=== PATIENT | male | born 1975 | race Caucasian/White ===

== ENCOUNTER 2017-05-03 00:02 | Inpatient (IN) | payer OTHER ==
[~2017-05-03] VITALS: Ht 182.9 cm; Wt 122.7 kg
[2017-05-03] VITALS (12 sets, daily range): BP systolic 133–160; BP diastolic 77–92; PULSE 76–94; RESP 18–19; Ht 182.9 cm; Wt 122.7 kg
[2017-05-03] MEDS ORDERED: ALBU8.5H3 INH (03:29)
[2017-05-03] MEDS ORDERED: METF750T2 PO (03:29)
[2017-05-03] MEDS ORDERED: AMLO5TAB4 PO (03:29)
[2017-05-03] MEDS ORDERED: ACETAMINOPHEN 325 MG TAB PO PRN (04:00)
[2017-05-03] MEDS ORDERED: CEFEPIME 1GM/50 ML (PMX) 50 ML IVPB SCH (04:00)
[2017-05-03] MEDS ORDERED: HYDROCODONE/APAP (5/325) TAB PO PRN (04:00)
[2017-05-03] MEDS ORDERED: morphine 4 MG/ML VIAL IV PRN (04:00)
[2017-05-03] MEDS ORDERED: ONDANSETRON 4 MG INJ IV PRN (04:00)
[2017-05-03] MEDS ORDERED: NACL 0.9% 3 ML SYG IV SCH (04:00)
[2017-05-03] MEDS ORDERED: ALBUTEROL 0.083% (NEB) 2.5 MG/3 ML AMP NEB PRN (04:00)
[2017-05-03] MEDS ORDERED: AZTREONAM 2 GM in SOD CHLORIDE 0.9% 100 ML IVPB SCH (05:00)
[2017-05-03] MEDS ORDERED: VANCOMYCIN IV PER PHARMACY XX SCH (05:00)
[2017-05-03] MEDS ORDERED: VANCOMYCIN 2 GM in SOD CHLORIDE 0.9% 500 ML IVPB SCH ×2 (05:00→06:00)
[2017-05-03] MEDS: INSULIN ASPART [NOVOLOG] 3 ML PEN SC SCH ×4 (08:00→21:00)
[2017-05-03] MEDS: INSULIN GLARGINE [LANtus] 3 ML PEN SC SCH ×2 (08:00→10:32)
[2017-05-03] MEDS ORDERED: DEXTROSE 50% 50 ML SYRINGE IV PRN ×2 (08:30)
[2017-05-03] MEDS ORDERED: GLUCOSE GEL 15 GRAM TUBE BUCCAL PRN (08:30)
[2017-05-03] MEDS ORDERED: GLUCOSE GEL 15 GRAM TUBE PO PRN ×2 (08:30)
[2017-05-03] MEDS ORDERED: GLUCAGON 1 MG INJ IM PRN (08:30)
[2017-05-03 08:38] LABS: EOSINOPHILS % 0.1 % (0.0-7.0); HEMATOCRIT 41.9 % (42.0-52.0); HEMOGLOBIN 14.6 g/dl (14.0-18.0); LYMPHOCYTES # 1.4 10^3/ul (0.8-2.9); LYMPHOCYTES % 16.3 % (15.0-51.0); MEAN CORPUSCULAR HEMOGLOBIN 28.7 pg (29.0-33.0); MEAN CORPUSCULAR HGB CONC 34.8 g/dl (32.0-37.0); MEAN CORPUSCULAR VOLUME 82.3 fl (82.0-101.0); MEAN PLATELET VOLUME 9.6 fl (7.4-10.4); MONOCYTE # 0.6 10^3/ul (0.3-0.9); MONOCYTES % 6.7 % (0.0-11.0); NEUTROPHIL # 6.5 10^3/ul (1.6-7.5); NEUTROPHILS % 76.5 % (39.0-77.0); PLATELET COUNT 426 10^3/UL (140-415); RED BLOOD COUNT 5.09 10^6/ul (4.70-6.10); RED CELL DISTRIBUTION WIDTH 12.2 % (11.5-14.5); WHITE BLOOD COUNT 8.5 10^3/ul (4.8-10.8)
[2017-05-03 09:08] LABS: ALBUMIN 3.7 g/dl (3.3-4.9); ALBUMIN/GLOBULIN RATIO 1.02; BILIRUBIN,INDIRECT 0.3 mg/dl (0-1.1); BILIRUBIN,TOTAL 0.3 mg/dl (0.2-1.3); CALCIUM 9.4 mg/dl (8.4-10.2); CREATININE 0.77 mg/dl (0.61-1.24); POTASSIUM 3.9 mmol/L (3.5-5.1); TOTAL PROTEIN 7.3 g/dl (6.1-8.1)
--- NOTE | 2017-05-03 09:12 | RADRPT ---
PROCEDURE: XR Chest. CLINICAL INDICATION: Shortness of breath. TECHNIQUE: Single frontal view. COMPARISON: None. FINDINGS: There is a right mid and lower lung zone atelectasis or pneumonia. The left lung is clear. The heart size is normal. There is a large right pleural effusion. There is no pneumothorax. IMPRESSION: 1. Right mid and lower lung zone atelectasis or pneumonia. 2. Large right pleural effusion. RPTAT: QQ .Philip Gutiérrez MD, MD Date Time Electronically viewed and signed by .Philip Gutiérrez MD, MD on 05/03/2017 09:12 .R/
[2017-05-03 09:45] LABS: INR 1.05; PROTIME 13.7 Sec (12.2-14.2); PT RATIO 1.1
[2017-05-03 09:46] LABS: PARTIAL THROMBOPLASTIN TIME 32.3 Sec (25.0-35.0)
--- NOTE | 2017-05-03 10:04 | HP ---
Date/Time of Note Date/Time of Note DATE: 05/03/17 TIME: 09:59 Assessment/Plan VTE Prophylaxis VTE Prophylaxis Intervention: SCD's Lines/Catheters IV Catheter Type (from [facility]): [facility]ine [facility] Urinary Cath still in place: No Assessment/Plan Assessment/Plan 1. Right-sided pneumonia, with pleural effusion, likely aspiration pneumonia -Patient had tooth infection/abscess proceeding is a symptom of S OB and cough, so it seems like patient may have aspirated his oral contents -IV antibiotic -Follow-up culture results -Consider thoracentesis 2. History of hypertension -Continue home meds with adjustment as needed 3. Type 2 diabetes -Check A1c. Insulin while in-house 4. History of asthma: -Supplemental oxygen, bronchodilators and steroids as needed HPI/ROS Admit Date/Time Admit Date/Time May 03, 2017 at 01:47 Hx of Present Illness This is a 41-year-old male with a history of hypertension, type 2 diabetes, asthma who initially presented to [facility] complaining of shortness of breath, dry cough cough and fever. He was transferred to [facility] for insurance reasons. At outside hospital, chest x-ray and chest CT showed large pleural effusion as well as right-sided pneumonia. Currently patient is feeling well and looks comfortable. He said he had a tooth infection about a week ago for which he was started on clindamycin. Few days ago he started experiencing above-stated symptoms. PMH/Family/Social Social History Smoking Status: Never smoker Exam/Review of Systems Vital Signs Vitals Vital Signs Date Time Temp Pulse Resp B/P Pulse Ox O2 Delivery O2 Flow Rate FiO2 05/03/17 08:36 87 05/03/17 07:49 97.3 19 135/85 91 Intake and Output 05/02/17 05/02/17 05/03/17 15:00 23:00 07:00 Intake Total 500 ml Balance 500 ml Exam Constitutional: alert, oriented Head: atraumatic, normocephalic Eyes: EOMI, PERRL Respiratory: diminished breath sounds Cardiovascular: nl pulses, regular rate and rhythm Gastrointestinal: non-tender, soft Extremities: normal pulses Labs Result Diagram: 05/03/1772905/03/17729 Medications Medications Current Medications Ondansetron HCl (Zofran Inj) 4 mg Q6H PRN IV NAUSEA AND/OR VOMITING; Start at 04:00 Acetaminophen (Tylenol Tab) 650 mg Q6H PRN PO PAIN LEVEL 1-3 OR FEVER; Start at 04:00 Acetaminophen/ Hydrocodone Bitart ([place] (5/325)) 1 tab Q6H PRN PO PAIN LEVEL 4 -6; Start 05/03/17 at 04:00 Morphine Sulfate (morphine) 3 mg Q4H PRN IV PAIN LEVEL 7-10; Start 05/03/17 at 04:00 Diagnostic Test (Pha) (Accu-Chek) 1 ea 02 XX ; Start 05/04/17 at 02:00 Insulin Glargine (Lantus) 10 unit DAILY@08 SC ; Start 05/03/17 at 08:00 Diagnostic Test (Pha) 1 ea 1 ea 02 XX ; Start 05/04/17 at 02:00 Aztreonam 2 gm/ Sodium Chloride 100 ml @ 100 mls/hr Q8 IVPB Last administered on 05/03/17 05:59; Admin Dose 100 MLS/HR; Start 05/03/17 at 05:00 Vancomycin HCl/ Sodium Chloride (Vancocin/NS) 500 ml @ 125 mls/hr ONCE IVPB Last administered on 05/03/17 06:56; Admin Dose 125 MLS/HR; Start 05/03/17 at 06:00; Stop 05/03/17 at 09:59 Miscellaneous Information 1 ea NOTE XX ; Start 05/03/17 at 08:30 Glucose (Glutose) 15 gm Q15M PRN PO DECREASED GLUCOSE; Start 05/03/17 at 08:30 Glucose (Glutose) 22.5 gm Q15M PRN PO DECREASED GLUCOSE; Start 05/03/17 at 08: 30 Dextrose (D50w Syringe) 25 ml Q15M PRN IV DECREASED GLUCOSE; Start 05/03/17 at 08:30 Dextrose (D50w Syringe) 50 ml Q15M PRN IV DECREASED GLUCOSE; Start 05/03/17 at 08:30 Glucagon (Glucagen) 1 mg Q15M PRN IM DECREASED GLUCOSE; Start 05/03/17 at 08:30 Glucose 15 gm 15 gm Q15M PRN BUCCAL DECREASED GLUCOSE; Start 05/03/17 at 08:30 Vancomycin HCl/ Sodium Chloride (Vancocin/NS) 250 ml @ 83.333 mls/ hr Q8H IVPB ; Start 05/03/17 at 15:00 Miscellaneous Information (*Rx Drug Level Order Reminder*) VANCO TROUGH @ 0, 600 ON... ONCE ONCE XX ; Start 05/04/17 at 06:00; Stop 05/04/17 at 06:01 JAMIE THOMAS MD May 03, 2017 10:04
--- NOTE | 2017-05-03 14:29 | PN ---
Date/Time of Note Date/Time of Note DATE: 05/03/17 TIME: 14:20 Assessment/Plan VTE Prophylaxis VTE Prophylaxis Intervention: SCD's Lines/Catheters IV Catheter Type (from Nrs): Saline Lock Urinary Cath still in place: No Assessment/Plan Assessment/Plan 1. Right-sided pneumonia, with pleural effusion, levaquin, US-guided thoracentesis 2. Hypertension, resume norvasc 3. Type 2 diabetes, metformin, ISS 4. History of asthma, neb prn Exam/Review of Systems Vital Signs Vitals Vital Signs Date Time Temp Pulse Resp B/P Pulse Ox O2 Delivery O2 Flow Rate FiO2 05/03/17 12:17 89 05/03/17 11:50 97.9 19 160/92 93 Intake and Output 05/02/17 05/02/17 05/03/17 15:00 23:00 07:00 Intake Total 500 ml Balance 500 ml Exam Constitutional: alert, oriented, well developed Psych: nl mood/affect, no complaints Head: atraumatic, normocephalic Eyes: EOMI, PERRL, nl conjunctiva, nl lids, nl sclera ENMT: nl external ears & nose, nl lips & teeth, nl nasal mucosa & septum Neck: non-tender, supple Respiratory: clear to auscultation, diminished breath sounds (right) Cardiovascular: nl pulses, regular rate and rhythm, No S3, No S4, No bruits, No diastolic murmur, No edema, No gallop, No irregular rhythm, No jugular venous distention (JVD), No murmurs/extra sounds, No other, No rub, No systolic murmur Gastrointestinal: nl liver, spleen, non-tender, soft, No ascites, No bowel sounds, No distended, No firm, No hepatomegaly, No mass , No other, No rebound or guarding, No splenomegaly, No surgical scars, No tender Musculoskeletal: nl extremities to inspection Extremities: normal pulses, No calf tenderness, No clubbing, No cyanosis, No edema, No other, No palpable cord, No pitting pedal edema, No tenderness Neurological: WATCH TECHNICIAN II-XII intact, nl mental status, nl speech, nl strength Results Result Diagram: 05/03/17 0730 05/03/17 0730 Results 24 hrs Laboratory Tests Test 05/03/17 02:44 05/03/17 07:30 05/03/17 08:20 05/03/17 10:34 Bedside Glucose 185 127 150 White Blood Count 8.5 Red Blood Count 5.09 Hemoglobin 14.6 Hematocrit 41.9 L Mean Corpuscular Volume 82.3 Mean Corpuscular Hemoglobin 28.7 L Mean Corpuscular Hemoglobin Concent 34.8 Red Cell Distribution Width 12.2 Platelet Count 426 H Mean Platelet Volume 9.6 Neutrophils % 76.5 Lymphocytes % 16.3 Monocytes % 6.7 Eosinophils % 0.1 Basophils % 0.0 Nucleated Red Blood Cells % 0.0 Neutrophils # 6.5 Lymphocytes # 1.4 Monocytes # 0.6 Eosinophils # 0.0 Basophils # 0.0 Nucleated Red Blood Cells # 0.0 Prothrombin Time 13.7 Prothrombin Time Ratio 1.1 INR International Normalized Ratio 1.05 Activated Partial Thromboplast Time 32.3 Sodium Level 139 Potassium Level 3.9 Chloride Level 106 Carbon Dioxide Level 23 Anion Gap 14 Blood Urea Nitrogen 10 Creatinine 0.77 Glucose Level 169 Hemoglobin A1c 6.9 H Calcium Level 9.4 Total Bilirubin 0.3 Direct Bilirubin 0.00 Indirect Bilirubin 0.3 Aspartate Amino Transf (AST/SGOT) 27 Alanine Aminotransferase (ALT/SGPT) 62 Alkaline Phosphatase 69 Total Protein 7.3 Albumin 3.7 Globulin 3.60 H Albumin/Globulin Ratio 1.02 Test 05/03/17 12:15 Bedside Glucose 119 Medications Medications Current Medications Ondansetron HCl (Zofran Inj) 4 mg Q6H PRN IV NAUSEA AND/OR VOMITING; Start at 04:00 Acetaminophen (Tylenol Tab) 650 mg Q6H PRN PO PAIN LEVEL 1-3 OR FEVER Last administered on 05/03/17 12:23; Admin Dose 650 MG; Start 05/03/17 at 04:00 Acetaminophen/ Hydrocodone Bitart ([place] (5/325)) 1 tab Q6H PRN PO PAIN LEVEL 4 -6; Start 05/03/17 at 04:00 Morphine Sulfate (morphine) 3 mg Q4H PRN IV PAIN LEVEL 7-10; Start 05/03/17 at 04:00 Diagnostic Test (Pha) (Accu-Chek) 1 ea 02 XX ; Start 05/04/17 at 02:00 Insulin Glargine (Lantus) 10 unit DAILY@08 SC Last administered on 9/26/17at 10 :32; Admin Dose 10 UNIT; Start 05/03/17 at 08:00 Diagnostic Test (Pha) 1 ea 1 ea 02 XX ; Start 05/04/17 at 02:00 Aztreonam/Sodium Chloride (Azactam/NS) 100 ml @ 100 mls/hr Q8 IVPB Last administered on 05/03/17 05:59; Admin Dose 100 MLS/HR; Start 05/03/17 at 05:00 Miscellaneous Information 1 ea NOTE XX ; Start 05/03/17 at 08:30 Glucose (Glutose) 15 gm Q15M PRN PO DECREASED GLUCOSE; Start 05/03/17 at 08:30 Glucose (Glutose) 22.5 gm Q15M PRN PO DECREASED GLUCOSE; Start 05/03/17 at 08: 30 Dextrose (D50w Syringe) 25 ml Q15M PRN IV DECREASED GLUCOSE; Start 05/03/17 at 08:30 Dextrose (D50w Syringe) 50 ml Q15M PRN IV DECREASED GLUCOSE; Start 05/03/17 at 08:30 Glucagon (Glucagen) 1 mg Q15M PRN IM DECREASED GLUCOSE; Start 05/03/17 at 08:30 Glucose 15 gm 15 gm Q15M PRN BUCCAL DECREASED GLUCOSE; Start 05/03/17 at 08:30 Vancomycin HCl/ Sodium Chloride (Vancocin/NS) 250 ml @ 83.333 mls/ hr Q8H IVPB ; Start 05/03/17 at 15:00 Miscellaneous Information (*Rx Drug Level Order Reminder*) VANCO TROUGH @ 0, 600 ON... ONCE ONCE XX ; Start 05/04/17 at 06:00; Stop 05/04/17 at 06:01 RAGHU HERNANDEZ MD May 03, 2017 14:29
[2017-05-03] MEDS ORDERED: VANCOMYCIN 1.25 GM in SOD CHLORIDE 0.9% 250 ML IVPB SCH (15:00)
[2017-05-03] MEDS: LEVOFLOXACIN 500MG/D5W (PMX) 100 ML IVPB SCH (16:09)
[2017-05-03] MEDS: AMLODIPINE 5 MG TAB PO SCH (16:10)
[2017-05-03] MEDS ORDERED: LIDOCAINE 1% (MPF) 5 ML VIAL ONE (18:16)
[2017-05-03] MEDS: metFORMIN 500 MG TAB PO SCH (18:41)
--- NOTE | 2017-05-03 19:27 | RADRPT ---
PROCEDURE: XR Chest. CLINICAL INDICATION: Status post thoracentesis TECHNIQUE: AP Portable chest. COMPARISON: 05/03/2017 07:43 a.m. FINDINGS: Mild interval decrease right pleural effusion. No pneumothorax is seen. The left costophrenic angle is excluded. Mild interstitial edema. The right heart border and hemidiaphragm are obscured. The aor ta is normal. The osseous structures are intact. IMPRESSION: Mild interval decrease right pleural effusion. No pneumothorax. Physician Stefani Date Time Electronically viewed and signed by Arina Stein Physician on 05/03/2017 19:26 CS/
[2017-05-03 19:53] LABS: FLD MN% 99.1 %; FLD PMN% 0.9 %; FLD RBC 2 /uL; FLD WBC 2893 /cmm
[2017-05-03 20:15] LABS: FLUID LD 931 U/L; FLUID TYPE FLUID
[2017-05-03 20:16] LABS: FLUID TOTAL PROTEIN 5.2 g/dl
--- NOTE | 2017-05-03 20:45 | RADRPT ---
PROCEDURE: US guided right thoracentesis. CLINICAL INDICATION: Shortness of breath. Right pleural effusion. TECHNIQUE: Prior to the procedure, informed consent was obtained. The risks, benefits, and alternatives were e xplained to the patient, including but not limited to bleeding, infection, pain, visceral or vascula r damage, shock, pneumothorax, chest tube placement, air embolism, and . The patient understoo d the risks and the alternatives and wished to proceed with the study. Informed written consent was obtained. A procedural pause was performed. The patient's name, date of , and procedure to be performed were verified. Ultrasound of the right hemithorax was performed in the axial and sagittal planes. A right pleural e ffusion is noted. Utilizing ultrasound guidance, optimal location for entry to the pleural cavity wa s ascertained. The overlying skin was prepped and draped in the usual sterile fashion. Approximate ly 10 ml of 1% Xylocaine was injected locally for pain control. Using ultrasound guidance, a 5-Fren ch Yueh catheter was introduced into the right pleural space without difficulty. Fluid was aspirated and sent to the laboratory. COMPARISON: None. FINDINGS: Initial ultrasound demonstrates fluid in the right pleural space. Approximately 1600 ml of serous fluid was aspirated. IMPRESSION: Successful ultrasound-guided right thoracentesis. RPTAT: QQ .Checo Aguero MD, Date Time Electronically viewed and signed by .Checo Aguero MD, on 05/03/2017 20:45 .N/
[2017-05-03 20:57] LABS: FLD CLARITY HAZY; FLD COLOR YELLOW; FLD TYPE PLEURAL
[2017-05-04] VITALS (11 sets, daily range): BP systolic 129–149; BP diastolic 72–95; PULSE 66–94; RESP 17–19
[2017-05-04] MEDS ORDERED: ACCU-CHEK XX SCH (02:00)
[2017-05-04] MEDS: ACCU-CHEK XX SCH (02:05)
[2017-05-04 08:17] LABS: BASOPHILS % 0.4 % (0.0-2.0); EOSINOPHILS # 0.2 10^3/ul (0.0-0.5); EOSINOPHILS % 1.7 % (0.0-7.0); HEMATOCRIT 46.1 % (42.0-52.0); HEMOGLOBIN 15.6 g/dl (14.0-18.0); LYMPHOCYTES # 3.5 10^3/ul (0.8-2.9); LYMPHOCYTES % 37.3 % (15.0-51.0); MEAN CORPUSCULAR HEMOGLOBIN 28.3 pg (29.0-33.0); MEAN CORPUSCULAR HGB CONC 33.8 g/dl (32.0-37.0); MEAN CORPUSCULAR VOLUME 83.7 fl (82.0-101.0); MEAN PLATELET VOLUME 9.7 fl (7.4-10.4); MONOCYTE # 0.8 10^3/ul (0.3-0.9); MONOCYTES % 8.8 % (0.0-11.0); NEUTROPHIL # 4.9 10^3/ul (1.6-7.5); NEUTROPHILS % 51.5 % (39.0-77.0); PLATELET COUNT 423 10^3/UL (140-415); RED BLOOD COUNT 5.51 10^6/ul (4.70-6.10); RED CELL DISTRIBUTION WIDTH 12.9 % (11.5-14.5); WHITE BLOOD COUNT 9.4 10^3/ul (4.8-10.8)
[2017-05-04 08:50] LABS: CALCIUM 9.1 mg/dl (8.4-10.2); PHOSPHORUS 4.2 mg/dl (2.5-4.9); POTASSIUM 4.5 mmol/L (3.5-5.1)
[2017-05-04] MEDS: metFORMIN 500 MG TAB PO SCH ×2 (08:55→17:12)
[2017-05-04] MEDS: AMLODIPINE 5 MG TAB PO SCH (08:56)
[2017-05-04] MEDS: INSULIN ASPART [NOVOLOG] 3 ML PEN SC SCH ×4 (09:01→21:00)
[2017-05-04] MEDS ORDERED: IBUPROFEN 800 MG TAB PO PRN (13:30)
[2017-05-04] MEDS ORDERED: HYDROCODONE/APAP (5/325) TAB PO PRN (14:00)
--- NOTE | 2017-05-04 14:02 | PN ---
Date/Time of Note Date/Time of Note DATE: 05/04/17 TIME: 13:58 Assessment/Plan VTE Prophylaxis VTE Prophylaxis Intervention: SCD's Lines/Catheters IV Catheter Type (from Nrs): Saline Lock Urinary Cath still in place: No Assessment/Plan Assessment/Plan 1. Right-sided pneumonia, on levaquin 2. Right pleural effusion, US-guided thoracentesis with 1600 cc fluid, follow up with culture 3. Hypertension, resume norvasc 4. Type 2 diabetes, metformin, ISS 5. History of asthma, neb prn 6. Headache, tylenol/ibuprofen and norco prn Subjective 24 Hr Interval Summary Free Text/Dictation less shortness of breath, headache Exam/Review of Systems Vital Signs Vitals Vital Signs Date Time Temp Pulse Resp B/P Pulse Ox O2 Delivery O2 Flow Rate FiO2 05/04/17 12:14 94 05/04/17 11:46 98.1 17 135/76 94 05/03/17 22:38 21 Intake and Output 05/03/17 05/03/17 05/04/17 15:00 23:00 07:00 Intake Total 800 ml 600 ml Balance 800 ml 600 ml Exam Constitutional: alert, oriented, well developed Psych: nl mood/affect, no complaints Head: atraumatic, normocephalic Eyes: EOMI, PERRL, nl conjunctiva, nl lids ENMT: mucosa pink and moist, nl external ears & nose, nl lips & teeth, nl nasal mucosa & septum Neck: non-tender, supple Respiratory: clear to auscultation, normal air movement, No congested cough, No crackles/rales, No diminished breath sounds, No intercostal retraction, No labored breathing, No other, No respirations, No tactile fremitus, No wheezing Cardiovascular: nl pulses, regular rate and rhythm, No S3, No S4, No bruits, No diastolic murmur, No edema, No gallop, No irregular rhythm, No jugular venous distention (JVD), No murmurs/extra sounds, No other, No rub, No systolic murmur Gastrointestinal: nl liver, spleen, non-tender, soft, No ascites, No bowel sounds, No distended, No firm, No hepatomegaly, No mass , No other, No rebound or guarding, No splenomegaly, No surgical scars, No tender Musculoskeletal: nl extremities to inspection Extremities: normal pulses, No calf tenderness, No clubbing, No cyanosis, No edema, No other, No palpable cord, No pitting pedal edema, No tenderness Neurological: HOSPICE NURSE PRACTITIONER II-XII intact, nl mental status, nl speech, nl strength Skin: nl turgor Results Result Diagram: 05/04/17 0711 05/04/17 0711 Results 24 hrs Laboratory Tests Test 05/03/17 17:45 05/03/17 18:39 05/03/17 21:00 05/04/17 07:11 Body Fluid Type FLUID Body Fluid Volume 980.0 Body Fluid Color YELLOW Body Fluid Appearance HAZY Body Fluid WBC 2893 Body Fluid RBC (Auto) 2 Body Fluid Polynuclear WBCs (%) 0.9 Body Fluid Mononuclear Cells % Auto 99.1 Body Fluid Total Protein 5.2 Body Fluid Lactate Dehydrogenase 931 Bedside Glucose 119 162 White Blood Count 9.4 Red Blood Count 5.51 Hemoglobin 15.6 Hematocrit 46.1 Mean Corpuscular Volume 83.7 Mean Corpuscular Hemoglobin 28.3 L Mean Corpuscular Hemoglobin Concent 33.8 Red Cell Distribution Width 12.9 Platelet Count 423 H Mean Platelet Volume 9.7 Neutrophils % 51.5 Lymphocytes % 37.3 Monocytes % 8.8 Eosinophils % 1.7 Basophils % 0.4 Nucleated Red Blood Cells % 0.0 Neutrophils # 4.9 Lymphocytes # 3.5 H Monocytes # 0.8 Eosinophils # 0.2 Basophils # 0.0 Nucleated Red Blood Cells # 0.0 Sodium Level 143 Potassium Level 4.5 Chloride Level 106 Carbon Dioxide Level 28 Anion Gap 14 Blood Urea Nitrogen 11 Creatinine 1.00 Glucose Level 125 # Calcium Level 9.1 Phosphorus Level 4.2 Magnesium Level 2.0 Test 05/04/17 08:59 05/04/17 13:03 Bedside Glucose 161 154 Medications Medications Current Medications Ondansetron HCl (Zofran Inj) 4 mg Q6H PRN IV NAUSEA AND/OR VOMITING; Start at 04:00 Acetaminophen (Tylenol Tab) 650 mg Q6H PRN PO PAIN LEVEL 1-3 OR FEVER Last administered on 05/03/17t 12:23; Admin Dose 650 MG; Start 05/03/17 at 04:00 Acetaminophen/ Hydrocodone Bitart ([place] (5/325)) 1 tab Q6H PRN PO PAIN LEVEL 4 -6 Last administered on 05/03/17 22:35; Admin Dose 1 TAB; Start 05/03/17 at 04: 00 Morphine Sulfate (morphine) 3 mg Q4H PRN IV PAIN LEVEL 7-10 Last administered on 05/04/17 08:44; Admin Dose 3 MG; Start 05/03/17 at 04:00 Diagnostic Test (Pha) (Accu-Chek) 1 ea 02 XX ; Start 05/04/17 at 02:00 Miscellaneous Information 1 ea NOTE XX ; Start 05/03/17 at 08:30 Glucose (Glutose) 15 gm Q15M PRN PO DECREASED GLUCOSE; Start 05/03/17 at 08:30 Glucose (Glutose) 22.5 gm Q15M PRN PO DECREASED GLUCOSE; Start 05/03/17 at 08: 30 Dextrose (D50w Syringe) 25 ml Q15M PRN IV DECREASED GLUCOSE; Start 05/03/17 at 08:30 Dextrose (D50w Syringe) 50 ml Q15M PRN IV DECREASED GLUCOSE; Start 05/03/17 at 08:30 Glucagon (Glucagen) 1 mg Q15M PRN IM DECREASED GLUCOSE; Start 05/03/17 at 08:30 Glucose (Glutose) 15 gm Q15M PRN BUCCAL DECREASED GLUCOSE; Start 05/03/17 at 08 :30 Amlodipine Besylate 5 mg 5 mg DAILY PO Last administered on 05/04/17 08:56; Admin Dose 5 MG; Start 05/03/17 at 14:30 Levofloxacin/ Dextrose (Levaquin 500mg/ D5W 100 ml (Pmx)) 100 ml @ 100 mls/hr Q24H IVPB Last administered on 05/03/17 16:09; Admin Dose 100 MLS/HR; Start at 14:30 Ibuprofen (Motrin) 800 mg Q6H PRN PO Pain; Start 05/04/17 at 13:30 RAGHU HERNANDEZ MD May 04, 2017 14:02
[2017-05-04] MEDS: LEVOFLOXACIN 500MG/D5W (PMX) 100 ML IVPB SCH (14:46)
[2017-05-05] VITALS (12 sets, daily range): BP systolic 119–143; BP diastolic 68–86; PULSE 73–108; RESP 16–20
[2017-05-05] MEDS: ACCU-CHEK XX SCH (02:00)
[2017-05-05] MEDS: INSULIN ASPART [NOVOLOG] 3 ML PEN SC SCH ×4 (08:00→21:00)
[2017-05-05] MEDS: metFORMIN 500 MG TAB PO SCH ×2 (08:43→17:09)
[2017-05-05] MEDS: AMLODIPINE 5 MG TAB PO SCH (08:44)
[2017-05-05] MEDS: LEVOFLOXACIN 500MG/D5W (PMX) 100 ML IVPB SCH (14:13)
--- NOTE | 2017-05-05 15:10 | PN ---
Date/Time of Note Date/Time of Note DATE: 05/05/17 TIME: 15:05 Assessment/Plan VTE Prophylaxis VTE Prophylaxis Intervention: LMWH Lines/Catheters IV [facility] Saline Lock Urinary Cath still in place: No Assessment/Plan Assessment/Plan 1. Right-sided pneumonia, on levaquin 2. Right pleural effusion, US-guided thoracentesis with 1600 cc fluid, follow up with culture(neg for 2 days) 3. Hypertension, resume norvasc 4. Type 2 diabetes, metformin, ISS 5. History of asthma, neb prn 6. Headache, tylenol/ibuprofen and norco prn Subjective 24 Hr Interval Summary Free Text/Dictation afebrile, no SOB Exam/Review of Systems Vital Signs Vitals Vital Signs Date Time Temp Pulse Resp B/P Pulse Ox O2 Delivery O2 Flow Rate FiO2 05/05/17 12:14 100 05/05/17 11:38 99.3 20 143/86 94 05/03/17 22:38 21 Intake and Output 05/04/17 05/04/17 05/05/17 15:00 23:00 07:00 Intake Total 1050 ml 600 ml Balance 1050 ml 600 ml Exam Constitutional: alert, oriented, well developed Psych: nl mood/affect, no complaints Head: atraumatic, normocephalic Eyes: EOMI, nl conjunctiva, nl lids ENMT: nl external ears & nose, nl lips & teeth, nl nasal mucosa & septum Neck: non-tender, supple Respiratory: clear to auscultation, normal air movement, No congested cough, No crackles/rales, No diminished breath sounds, No intercostal retraction, No labored breathing, No other, No respirations, No tactile fremitus, No wheezing Cardiovascular: nl pulses, regular rate and rhythm, No S3, No S4, No bruits, No diastolic murmur, No edema, No gallop, No irregular rhythm, No jugular venous distention (JVD), No murmurs/extra sounds, No other, No rub, No systolic murmur Gastrointestinal: soft Musculoskeletal: nl extremities to inspection Extremities: normal pulses, No calf tenderness, No clubbing, No cyanosis, No edema, No other, No palpable cord, No pitting pedal edema, No tenderness Neurological: PSYCH ASSISTANT II-XII intact, nl mental status, nl speech, nl strength Skin: nl turgor Results Result Diagram: 05/04/17 0711 05/04/17 0711 Results 24 hrs Laboratory Tests Test 05/04/17 17:07 05/04/17 21:29 05/05/17 02:43 05/05/17 08:26 Bedside Glucose 125 131 114 131 Test 05/05/17 11:48 Bedside Glucose 142 Medications Medications Current Medications Ondansetron HCl (Zofran Inj) 4 mg Q6H PRN IV NAUSEA AND/OR VOMITING; Start at 04:00 Acetaminophen (Tylenol Tab) 650 mg Q6H PRN PO PAIN LEVEL 1-3 OR FEVER Last administered on 05/03/17 12:23; Admin Dose 650 MG; Start 05/03/17 at 04:00 Morphine Sulfate (morphine) 3 mg Q4H PRN IV PAIN LEVEL 7-10 Last administered on 05/04/17 08:44; Admin Dose 3 MG; Start 05/03/17 at 04:00 Diagnostic Test (Pha) (Accu-Chek) 1 ea 02 XX Last administered on 05/05/17 02: 00; Admin Dose 1 EA; Start 05/04/17 at 02:00 Miscellaneous Information 1 ea NOTE XX ; Start 05/03/17 at 08:30 Glucose (Glutose) 15 gm Q15M PRN PO DECREASED GLUCOSE; Start 05/03/17 at 08:30 Glucose (Glutose) 22.5 gm Q15M PRN PO DECREASED GLUCOSE; Start 05/03/17 at 08: 30 Dextrose (D50w Syringe) 25 ml Q15M PRN IV DECREASED GLUCOSE; Start 05/03/17 at 08:30 Dextrose (D50w Syringe) 50 ml Q15M PRN IV DECREASED GLUCOSE; Start 05/03/17 at 08:30 Glucagon (Glucagen) 1 mg Q15M PRN IM DECREASED GLUCOSE; Start 05/03/17 at 08:30 Glucose (Glutose) 15 gm Q15M PRN BUCCAL DECREASED GLUCOSE; Start 05/03/17 at 08 :30 Amlodipine Besylate 5 mg 5 mg DAILY PO Last administered on 05/05/17 08:44; Admin Dose 5 MG; Start 05/03/17 at 14:30 Levofloxacin/ Dextrose (Levaquin 500mg/ D5W 100 ml (Pmx)) 100 ml @ 100 mls/hr Q24H IVPB Last administered on 05/05/17 14:13; Admin Dose 100 MLS/HR; Start at 14:30 Ibuprofen (Motrin) 800 mg Q6H PRN PO Pain Last administered on 05/04/17 17:12 ; Admin Dose 800 MG; Start 05/04/17 at 13:30 Acetaminophen/ Hydrocodone Bitart ([place] (5/325)) 1 tab Q4H PRN PO pain; Start 05/04/17 at 14:00 RAGHU HERNANDEZ MD May 05, 2017 15:10
[2017-05-05] MEDS: ENOXAPARIN 40 MG/0.4 ML SYG SC SCH (16:33)
--- NOTE | 2017-05-05 17:20 | RADRPT ---
PROCEDURE: XR Chest. CLINICAL INDICATION: Pleural effusion. TECHNIQUE: Single frontal view. COMPARISON: 05/03/2017. FINDINGS: There is right basilar atelectasis, improved. The lungs are otherwise clear. The heart size is normal. There is a small right pleural effusion, smaller than seen previously. There is no left pleural effu lucretia. There is no pneumothorax. IMPRESSION: 1. Improved appearance of the right lung base and smaller right pleural effusion. 2. Otherwise unremarkable chest x-ray. RPTAT: QQ .Philip Gutiérrez MD, MD Date Time Electronically viewed and signed by .P[place] Gutiérrez MD, MD on 05/05/2017 17:20 .R/
[2017-05-06] VITALS (10 sets, daily range): BP systolic 110–146; BP diastolic 62–92; PULSE 83–125; RESP 16–18
[2017-05-06] MEDS: ACCU-CHEK XX SCH (02:00)
[2017-05-06] MEDS: INSULIN ASPART [NOVOLOG] 3 ML PEN SC SCH ×2 (08:00→12:00)
[2017-05-06] MEDS: metFORMIN 500 MG TAB PO SCH (08:40)
[2017-05-06 08:41] LABS: BASOPHILS % 0.3 % (0.0-2.0); EOSINOPHILS # 0.2 10^3/ul (0.0-0.5); EOSINOPHILS % 2.2 % (0.0-7.0); HEMOGLOBIN 16.5 g/dl (14.0-18.0); LYMPHOCYTES # 3.2 10^3/ul (0.8-2.9); MEAN CORPUSCULAR HEMOGLOBIN 28.7 pg (29.0-33.0); MEAN CORPUSCULAR HGB CONC 35.1 g/dl (32.0-37.0); MEAN CORPUSCULAR VOLUME 81.9 fl (82.0-101.0); MEAN PLATELET VOLUME 9.6 fl (7.4-10.4); MONOCYTE # 0.8 10^3/ul (0.3-0.9); MONOCYTES % 7.4 % (0.0-11.0); NEUTROPHILS % 58.7 % (39.0-77.0); PLATELET COUNT 520 10^3/UL (140-415); RED BLOOD COUNT 5.74 10^6/ul (4.70-6.10); RED CELL DISTRIBUTION WIDTH 12.5 % (11.5-14.5); WHITE BLOOD COUNT 10.2 10^3/ul (4.8-10.8)
[2017-05-06 08:55] LABS: CALCIUM 9.7 mg/dl (8.4-10.2); CREATININE 0.87 mg/dl (0.61-1.24); POTASSIUM 3.9 mmol/L (3.5-5.1)
[2017-05-06] MEDS: AMLODIPINE 5 MG TAB PO SCH (09:17)
[2017-05-06] MEDS: ENOXAPARIN 40 MG/0.4 ML SYG SC SCH (09:18)
[2017-05-06] MEDS ORDERED: LEVOFLOXACIN 500 MG TAB PO SCH (14:30)
[2017-05-06] MEDS ORDERED: LEVO500T72 PO (14:54)
--- NOTE | 2017-05-06 15:00 | DS ---
Date/Time of Note Date/Time of Note DATE: 05/06/17 TIME: 14:55 Discharge Summary Admission/Discharge Info Admit Date/Time May 03, 2017 at 01:47 Discharge Date/Time Discharge Diagnosis 1. Right-sided pneumonia, improving, on levaquin 2. Right pleural effusion, US-guided thoracentesis with 1600 cc fluid, follow up with PCP 3. Hypertension, resume norvasc 4. Type 2 diabetes, metformin 5. History of asthma, neb prn Patient Condition: Stable Hx of Present Illness This is a 41-year-old male with a history of hypertension, type 2 diabetes, asthma who initially presented to [facility] complaining of shortness of breath, dry cough cough and fever. He was transferred to [facility] for insurance reasons. At outside hospital, chest x-ray and chest CT showed large pleural effusion as well as right-sided pneumonia. Currently patient is feeling well and looks comfortable. He said he had a tooth infection about a week ago for which he was started on clindamycin. Few days ago he started experiencing above-stated symptoms. Hospital Course CXR with right sided moderate pleural effusion and infiltrates. Patient got US- guided right thoracentesis with removal of 1600 cc of fluid. The fluid culture and cytology both negative. Patient has been treated with levaquin for pneumonia , symptoms improved. Patient will continue on levaquin and follow up with PCP in office to repeat CXR. Home Meds Active Scripts Levofloxacin* (Levaquin*) 500 Mg Tablet, 500 MG PO DAILY for 10 Days, TAB Prov:RAGHU HERNANDEZ MD 05/06/17 Reported Medications Albuterol Sulfate* (Proair HFA*) 8.5 Gm Hfa.aer.ad, 2 PUFF INH Q4, #1 INHALER 05/03/17 Metformin Hcl* (Metformin Hcl* ER) 750 Mg Tab.sr.24h, 750 MG PO BID, #30 TAB 05/03/17 Amlodipine Besylate* (Norvasc*) 5 Mg Tablet, 5 MG PO DAILY, TAB 05/03/17 Primary Care Provider Ramón Vela MD Pending Labs Laboratory Tests Test 05/05/17 16:57 05/05/17 21:35 05/06/17 07:35 05/06/17 08:38 Bedside Glucose 156mg/dL (70-220) 110mg/dL (70-220) 133mg/dL (70-220) White Blood Count 10.210^3/ul (4.8-10.8) Red Blood Count 5.7410^6/ul (4.70-6.10) Hemoglobin 16.5g/dl (14.0-18.0) Hematocrit 47.0% (42.0-52.0) Mean Corpuscular Volume 81.9fl (82.0-101.0) Mean Corpuscular Hemoglobin 28.7pg (29.0-33.0) Mean Corpuscular Hemoglobin Concent 35.1g/dl (32.0-37.0) Red Cell Distribution Width 12.5% (11.5-14.5) Platelet Count 53559^3/UL (140-415) Mean Platelet Volume 9.6fl (7.4-10.4) Neutrophils % 58.7% (39.0-77.0) Lymphocytes % 31.0% (15.0-51.0) Monocytes % 7.4% (0.0-11.0) Eosinophils % 2.2% (0.0-7.0) Basophils % 0.3% (0.0-2.0) Nucleated Red Blood Cells % 0.0/100WBC (0.0-0.0) Neutrophils # 6.010^3/ul (1.6-7.5) Lymphocytes # 3.210^3/ul (0.8-2.9) Monocytes # 0.810^3/ul (0.3-0.9) Eosinophils # 0.210^3/ul (0.0-0.5) Basophils # 0.010^3/ul (0.0-0.1) Nucleated Red Blood Cells # 0.010^3/ul (0.0-0.0) Sodium Level 139mmol/L (135-144) Potassium Level 3.9mmol/L (3.5-5.1) Chloride Level 105mmol/L (97-110) Carbon Dioxide Level 26mmol/L (21-31) Anion Gap 12 (8-16) Blood Urea Nitrogen 13mg/dl (7-20) Creatinine 0.87mg/dl (0.61-1.24) Glucose Level 133mg/dl (70-220) Calcium Level 9.7mg/dl (8.4-10.2) Test 05/06/17 12:08 Bedside Glucose 102mg/dL (70-220) RAGHU HERNANDEZ MD May 06, 2017 15:00
== END 2017-05-06 18:28 | disposition home or self-care (01) | DRG 194 ==
LOC: MS4 01:47
PROVIDERS: ADMIT Hospitalist; ATTEND Hospitalist
PROC: 0W993ZX Drainage of Right Pleural Cavity, Percutaneous Approach, Diagnostic (ICD-10-PCS; principal; 2017-05-03)
DX: J18.9 Pneumonia, unspecified organism (principal); J90 Pleural effusion, not elsewhere classified; I10 Essential (primary) hypertension; E11.9 Type 2 diabetes mellitus without complications; J45.909 Unspecified asthma, uncomplicated; R51 Headache
CPT/HCPCS: 32555; 71010; 80048; 80053; 82962; 83036; 83615; 83735; 84100; 84157; 85025; 85610; 85730; 87070; 87102; 88104; 88305; 89051; 94664; J1650; J1815; J1956; J2270; J3370; J7040; J7050